=== PATIENT | male | born 1980 | race Caucasian/White ===

== ENCOUNTER 2019-12-27 11:37 | Outpatient (REF) | payer MEDICAID, SELFPAY ==
[2019-12-27 12:47] LABS: MANUAL DIFF FLAG NO
[2019-12-27 12:50] LABS: Basophils Percent Auto 0.9 % (0-2); Eosinophils Absolute Auto 0.2 X10*3/uL (0.0-0.4); Eosinophils Percent Auto 3.2 % (0-4); Hematocrit 39.2 % (42-52); Hemoglobin 13.9 g/dl (14.0-18.0); Imm Gran Abs Auto 0.01 X10*3/uL (0.00-0.03); Imm Gran Pct Auto 0.2 % (0.0-0.4); Lymphocytes Absolute Auto 1.5 X10*3/uL (1.2-4.9); Mean Corpuscular HGB Conc 35.5 g/dl (31.0-36.0); Mean Corpuscular Hemoglobin 31.4 pg (27.0-33.0); Mean Corpuscular Volume 88.7 fL (80-98); Mean Platelet Volume 9.5 fL (9.4-12.4); Monocytes Absolute Auto 0.4 X10*3/uL (0.1-1.2); Neutrophils Absolute Auto 2.6 X10*3/uL (2.0-8.3); Neutrophils Percent Auto 55.7 % (45-73); Platelet Count 331 X10*3/uL (160-400); Red Blood Count 4.42 X10*6/uL (4.60-5.80); Red Cell Distribution Width 11.7 % (11.0-16.0); White Blood Count 4.7 X10*3/uL (4.8-10.8)
[2019-12-27 14:28] LABS: Alanine Aminotransferase 21 U/L (0-40); Albumin Level 4.6 g/dL (3.5-5.0); Alkaline Phosphatase 84 U/L (39-117); Anion Gap 14 (12-20); Aspartate Amino Transferase 21 U/L (5-37); Bilirubin Total 0.6 mg/dL (0.0-1.0); Blood Urea Nitrogen 9 mg/dL (9-16); Carbon Dioxide 23 mmol/L (22-29); Chloride 104 mmol/L (96-108); Cholesterol 260 mg/dL; Estimated Glomerular Filt Rate > 60; Glucose Fasting 88 mg/dL (60-99); HDL Cholesterol 45 mg/dL; LDL Cholesterol Calculated 195 mg/dl; Potassium 4.3 mmol/l (3.3-5.1); Sodium 137 mmol/L (135-145); Total Protein 7.3 g/dL (6.5-8.0); Triglycerides 100 mg/dL
[2020-01-01 13:31] LABS: Testosterone, Free 109.1 pg/mL (35.0-155.0); Testosterone, Total 510 ng/dL (250-1100)
== END 2019-12-27 11:38 | disposition home or self-care (01) ==
LOC: HO.MANLDS 11:37
PROVIDERS: PCP Physician Assistant; Visit Provider Physician Assistant
DX: Z13.6 Encounter for screening for cardiovascular disorders (principal); F41.9 Anxiety disorder, unspecified
CPT/HCPCS: 36415; 80053; 80061; 84402; 84403; 85025

== ENCOUNTER 2020-04-03 09:52 | Outpatient (REF) | payer MEDICAID, SELFPAY ==
[2020-04-03 11:17] LABS: Glucose Urine UA NEG (NEG); Leukocyte Esterase Urine NEG (NEG); Nitrite Urine NEG (NEG); Specific Gravity - Urine 1.015 (1.005-1.025); Urine Blood NEG (NEG); Urine Ketones NEG (NEG); Urine Protein NEG (NEG-TRACE)
[2020-04-03 11:22] LABS: Appearance Urine CLEAR; Color Urine STRAW
== END 2020-04-03 09:53 | disposition home or self-care (01) ==
LOC: HO.MANLNP 09:52
PROVIDERS: PCP Internal Medicine; Visit Provider Internal Medicine
DX: R35.0 Frequency of micturition (principal)
CPT/HCPCS: 81003; 87086

== ENCOUNTER 2021-05-11 11:38 | Outpatient (REF) | payer MEDICAID, SELFPAY ==
[2021-05-11 13:26] LABS: MANUAL DIFF FLAG NO
[2021-05-11 13:30] LABS: Basophils Percent Auto 0.5 % (0-2); Eosinophils Absolute Auto 0.1 X10*3/uL (0.0-0.4); Eosinophils Percent Auto 2.2 % (0-4); Hematocrit 40.9 % (42.0-52.0); Imm Gran Abs Auto 0.01 X10*3/uL (0.00-0.03); Imm Gran Pct Auto 0.2 % (0.0-0.4); Lymphocytes Absolute Auto 1.4 X10*3/uL (1.2-4.9); Lymphocytes Percent Auto 23.9 % (20-40); Mean Corpuscular HGB Conc 34.2 g/dl (31.0-36.0); Mean Corpuscular Hemoglobin 30.3 pg (27.0-33.0); Mean Corpuscular Volume 88.5 fL (80.0-98.0); Monocytes Absolute Auto 0.4 X10*3/uL (0.1-1.2); Monocytes Percent Auto 7.3 % (2-11); Neutrophils Percent Auto 65.9 % (45-73); Platelet Count 305 X10*3/uL (160-400); Red Blood Count 4.62 X10*6/uL (4.60-5.80); Red Cell Distribution Width 11.9 % (11.0-16.0)
[2021-05-11 13:48] LABS: Alanine Aminotransferase 17 U/L (0-40); Albumin Level 4.4 g/dL (3.5-5.0); Alkaline Phosphatase 83 U/L (39-117); Anion Gap 12 (12-20); Aspartate Amino Transferase 20 U/L (5-37); Bilirubin Total 0.5 mg/dL (0.0-1.0); Blood Urea Nitrogen 12 mg/dL (9-16); Calcium 9.4 mg/dL (8.4-10.2); Carbon Dioxide 25 mmol/L (22-29); Chloride 106 mmol/L (96-108); Cholesterol 248 mg/dL; Estimated Glomerular Filt Rate > 60; Glucose Random 98 mg/dL (60-115); HDL Cholesterol 62 mg/dL; LDL Cholesterol Calculated 169 mg/dl; Potassium 4.1 mmol/L (3.3-5.1); Sodium 139 mmol/L (135-145); Total Protein 6.9 g/dL (6.5-8.0); Triglycerides 89 mg/dL
[2021-05-11 14:09] LABS: Prostate Specific Antigen 0.29 ng/mL (<0.05-4.0); Thyroid Stimulating Hormone 0.34 uIU/mL (0.32-4.0); Vitamin D 25-OH Total 22.2 ng/mL (>30)
== END 2021-05-11 11:39 | disposition home or self-care (01) ==
LOC: HO.MANLDS 11:38
PROVIDERS: PCP Internal Medicine; Visit Provider Internal Medicine
DX: Z00.00 Encounter for general adult medical examination without abnormal findings (principal); Z12.5 Encounter for screening for malignant neoplasm of prostate
CPT/HCPCS: 36415; 80053; 80061; 82306; 84153; 84443; 85025

== ENCOUNTER 2025-02-19 10:49 | Outpatient (REF) | payer BC, SELFPAY ==
--- NOTE | ~2025-02-19 | XR_ITS ---
EXAMINATION: XR THORACIC SPINE CLINICAL INFORMATION: strain of muscle COMPARISON: None available. TECHNIQUE: 3 views of the thoracic spine were obtained. FINDINGS: Vertebral body height and alignment is preserved. Disc spaces are relatively preserved with questionable minimal narrowing. XR/XR thoracic spine 2V IMPRESSION: Unremarkable thoracic spine. Electronically signed by: Ernesto Bender MD 02/21/2025 10:52 AM [facility]
--- OUTSIDE RECORDS SUMMARY | 2025-02-19 10:52 | XMS_ITS | Continuity of Care Document ---
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) MDM MODERATE MUST MEET 2 OUT OF 3 ELEMENTS: PROBLEMS, DATA OR RISK ELEMENT 1: PROBLEMS ADDRESSED 1 OR MORE CHRONIC ILLNESS WITH EXACERBATION OR 2 OR MORE STABLE CHRONIC ILLNESSES OR 1 UNDIAGNOSED NEW PROBLEM OR 1 ACUTE ILLNESS W/SYMPTOMS OR 1 ACUTE COMPLICATED INJURY ELEMENT 2: DATA MUST MEET 1 OF 3 CATEGORIES CATEGORY 1: REVIEW OF PRIOR EXTERNAL NOTES, REVIEW OF RESULTS, ORDERING OF EACH TEST, ASSESSMENT REQUIRING INDEPENDENT HISTORIAN OR CATEGORY 2: INDEPENDENT INTERPRETATION OF TESTS BY ANOTHER PHYSICIAN OR SPECIALIST OR CATEGORY 3: DISCUSSION OF MGT OR TEST INTERPRETATION W/EXTERNAL PHYSICIAN OR SPECIALIST ELEMENT 3: RISK RISK OF COMPLICATIONS AND/OR MORBIDITY OR MORTALITY OF PATIENT MANAGEMENT PROVIDER MUST THOROUGHLY DOCUMENT EACH ELEMENT THAT IS COVERED Not available 02/18/2025 14:49:25 Plan of Treatment Reminders Order Date Submit Date Provider Last Modified By Organization Details Last Modified Time Details Appointments None recorded. Lab None recorded. Referral None recorded. Procedures None recorded. Surgeries None recorded. Imaging XR, thoracic spine, 2 view 2024 025 [facility] (Imaging), [address] [place], [address], 15:17:32 Medication Orders None recorded. Patient TargetsNo targets recorded. Patient InstructionsNo instructions recorded. Reason for Referral None Reported. Problems Name Problem SNOMED Code Status Onset Date Resolution Date Notes Provider Name and Address Organization Details Recorded Time Anxiety 70452936 Active 2018 hCani becker [facility] Internal [facility] 9 16:20:54 Panic attack 509650009 [facility] 16:21:06 Restless legs syndrome 13055382 Active 2021 Joseph Rodríguez DO [address] [place] [address], [address], [facility] Internal [facility] 2 10:39:23 Acute sinusitis 83006321 Active 2021 DIPTI HONG [address] [place] [address], [address], [facility] 2 12:35:29 COVID-19 038812622 Active 2021 DIPTI HONG [address] [place] [address], [address], [facility] 2 16:09:16 Dysuria 97551528 Active 2021 Joseph Rodríguez DO [address] [place] [address], [address], [facility] 2 15:03:31 Cough 78871225 Active 2021 DIPTI HONG [address] [place] [address], [address], [facility] 2 12:27:28 Mood disorder 34861671 Active 2022 Joseph Rodríguez DO [address] [place] [address], [address], [facility] 3 22:27:49 Insomnia 553411296 Active 2022 Joseph Rodríguez DO [address] [place] [address], [address], [facility] 3 17:06:10 Laceratio n of right foot 735464267375 38958 Active 2023 DIPTI HONG [address] [place] [address], [address], [facility] 4 14:26:33 Muscle spasm of cervical muscle of neck 543351645023 Active 2024 Joseph RodríguezDO [address] [place] [address], [address], [facility] 5 11:26:32 Strain of thoracic region 23916154 Active 2024 Joseph RodríguezDO [address] [place] [address], [address], [facility] 5 11:26:45 Problem Notes None recorded. Procedures Surgical History Date Name Laterality Status Provider Name and Address Organization Details Recorded Time [facility]end[facility] completed [facility], [address], [address], [facility] 01/22/2019 16:14:19 Imaging Results None recorded. Procedure Notes None recorded. Medical Equipment None Reported. Allergies No known drug allergies Medications Name Sig Start Date Stop Date Status Note LastModified by Organization Details LastModified Time cyclobenzap rine 10 mg tablet TAKE 1 TABLET BY MOUTH EVERY DAY AT BEDTIME FOR 10 DAYS active Not Available Not Available No t Available amoxicillin 500 mg capsule TK 1 C PO Q 6 H UNTIL FINISHED 06/27 completed Not Available Not Available Not Available doxycycline hyclate 100 mg capsule TAKE 1 CAPSULE BY MOUTH TWICE DAILY 04/03 completed Not Available Not Available Not Available clindamycin HCl 300 mg capsule TK ONE C PO Q 12 H UNTIL FINISHED 06/27 completed Not Available Not Available Not Available azithromyci n 250 mg tablet TAKE 2 TABLETS (500 MG) BY ORAL ROUTE ONCE DAILY FOR 1 DAY THEN 1 TABLET (250 MG) BY ORAL ROUTE ONCE DAILY FOR 4 DAYS 11/02 completed Not Available Not Available Not Available ibuprofen 800 mg tablet TK 1 T PO Q 8 H PRF PAIN 05/04 completed Not Available Not Available Not Available sertraline 100 mg tablet TAKE 1 TABLET BY MOUTH EVERY DAY IN THE MORNING active Not Available Not Available No t Available venlafaxine ER 150 mg capsule,ext ended release 24 hr 11/02 completed Not Available Not Available Not Available tramadol 50 mg tablet TK 1 T PO Q 6 H 04/03 completed Not Available Not Available Not Available acetaminoph en 500 mg tablet TK 1 T PO Q 6 H PRF PAIN 04/17 completed Not Available Not Available Not Available amoxicillin 500 mg tablet TAKE 1 TABLET BY MOUTH EVERY 8 HOURS 04/03 completed Not Available Not Available Not Available ondansetron 8 mg disintegrat ing tablet DISSOLVE 1 TABLET ON THE TONGUE TWICE DAILY FOR 14 DAYS 07/03 completed Not Available Not Available Not Available lorazepam 0.5 mg tablet TAKE 1 TABLET BY MOUTH TWICE A DAY NEEDED FOR ANXIETY active Not Available Not Available No t Available tamsulosin 0.4 mg capsule TAKE 1 CAPSULE BY MOUTH EVERY DAY 02/18 completed Not Available Not Available Not Available bupropion HCl 75 mg tablet Take 1 tablet every day by oral route for 30 days. 06/01 completed Not Available Not Available Not Available gabapentin 300 mg capsule TAKE 1 CAPSULE BY MOUTH THREE TIMES DAILY 11/02 completed Not Available Not Available Not Available diclofenac sodium 75 mg tablet,emerson yed release TAKE 1 TABLET BY MOUTH TWICE A DAY FOR 10 DAYS active Not Available Not Available No t Available hydroxyzine HCl 25 mg tablet TK 1 TO 2 TS PO HS PRN 04/17 completed Not Available Not Available Not Available codeine 10 mg-guaifene sin 100 mg/5 mL oral liquid TAKE 10ML BY MOUTH EVERY 4 HOURS NEEDED FOR 7 DAYS 07/03 completed Not Available Not Available Not Available diclofenac sodium 50 mg tablet,emerson yed release Take 1 tablet twice a day by oral route with meals for 30 days. 12/26 completed Not Available Not Available Not Available ibuprofen 600 mg tablet TAKE 1 TABLET BY MOUTH EVERY 8 HOURS NEEDED FOR PAIN 04/17 completed Not Available Not Available Not Available zolpidem 10 mg tablet TAKE 1 TABLET BY MOUTH EVERY DAY NEEDED active Not Available Not Available No t Available methylpredn isolone 4 mg tablets in a dose pack FOLLOW PACKAGE DIRECTION S 06/28 completed Not Available Not Available Not Available sertraline 50 mg tablet Take 1 tablet every day by oral route. 09/14 completed Not Available Not Available Not Available sodium fluoride 1.1 % dental gel AFTER BRUSHING WITH TOOTHPAST E RINSE USUAL APPLY GEL TO TEETH WITH TOOTHBRUS H FOR 1 MINUTE SPIT OUT GEL DO NOT EAT OR DRINK FOR 30 MINUTES 04/17 completed Not Available Not Available Not Available oxycodone 5 mg tablet TK 1 T PO Q 6 H PRF PAIN 06/27 completed Not Available Not Available Not Available ProAir HFA 90 mcg/actuati on aerosol inhaler Inhale 2 puffs every 4 hours by inhalatio n route. 12/26 completed Not Available Not Available Not Available aripiprazol e 2 mg tablet Take 1 tablet every day by oral route in the evening for 30 days. 07/09 completed Not Available Not Available Not Available Trintellix 5 mg tablet Take by oral route for 30 days. 07/17 completed Not Available Not Available Not Available molnupiravi r 200 mg capsule (EUA) TAKE 4 CAPSULES BY MOUTH EVERY 12 HOURS FOR 5 DAYS 11/02 completed Not Available Not Available Not Available Vitals Date Recorded Body height Body mass index (BMI) Body weight Heart rate Oxygen saturation Systolic And Diastolic Provider Name and Address Organization Details Last Updated DateTime 5 176.53 cm 20.5 kg/m2 69433.8 1 g 88 /min 97 % 148/90 mm[Hg] Kimberlyn De La Vega [facility] Internal [facility] 5 14:39:20 Social History Question Answer Notes LastModified by Organizat ion Details LastModified Time Tobacco Smoking Status Never Smoker June [address], [address] 01/22/2019 16:13:31 What Was The Date Of Your Most Recent Tobacco Screening? 02/18/2025 [email or web address] Information not available 02/18/2025 How Much Tobacco Do You Smoke? No Information not available 01/22/2019 How Many Years Have You Smoked Tobacco? 6 Information not available 01/22/2019 Sex: Unknown Functional Status Question Answer Note LastModified by Organizat ion Details LastModified Time Do you or have you ever used any other forms of tobacco or nicotine? No Information not available 07/03/2022 Do you or have you ever used smokeless tobacco? Former smokeless tobacco user Information not available 01/22/2019 Do you or have you ever used e-cigarettes or vape? Current user of electronic cigarettes Information not available 05/04/2021 Mental Status None recorded. Family History Relationship Description Onset Age of this Age Resolved Age Notes LastModified by Organization Details LastModified Time Father Coronary arterioscler osis [email or web address] Not available 2018 16:21:48 Father Hyperlipidem ia [email or web address] Not available 13:44:40 Maternal Grandmother Malignant neoplasm of breast [email or web address] Not available 13:44:40 Maternal Grandmother Cerebrovascu lar accident Not available 16:12:58 Maternal Grandmother Myocardial infarction Not available 01/02 16:13:04 Maternal Uncle Malignant neoplasm of liver etoh [email or web address] Not available 13:44:40 Medical History No medical history recorded. Immunizations Vaccine Type Date Status Note Provider Nam e and Address Organization Details Recorded Time COVID-19 vaccine, vector-nr, rS-ChAdOx1, PF, 0.5 mL 2 completed Patricia becker [facility] 05/04/2021 15:10:14 Td (adult) 5 monica becker [facility] 05/04/2021 15:10:24 pneumococcal polysaccharide PPV23 8 monica becker [facility] 05/04/2021 15:10:36 Past Encounters Encounter ID Performer Location Encounter Start Date Encounter Closed Date Diagnosis/Indication Diagnosis SNOMED-CT Code Diagnosis ICD10 Code Diagnosis IMO Codes Diagnosis Note [id number] DIPTI HONG [facility] [address] [address] 02/07/2025 10:56:48 02/07/2025 11:33:07 Anxiety 82673272 F41.1 we will try aripiprazo le Mood disorder 14729057 F 40 stable Muscle spa sm of cervical muscle of neck 3090237367 04 M62.163 6522455 Strain of thoracic region 48252791 S29.012A [id number] DO Torres [facility] [address] [address] 02/18/2025 14:32:26 02/18/2025 15:17:32 Strain of thoracic region 26217719 S29.012A [id number] Health Concerns Section Related Observation LastModified by Organization Detai ls LastModified Time None Recorded Concern Status LastModified by Organization Details LastModified Time None Recorded Payers Encounter Date Sequence Insurance Name Policy Number Policy Pepe Covered Member ID Pepe Member ID Guarantor Name 02/18/2025 1 [facility] [employer] [id number] Cameron Alfaro [id number] Cameron Alfaro Notes Date Note Type Note Provider Name a nd Address Organization Details Recorded Time 02/18/2025 text/html ROS as noted in the HPI haere for rechkrelates that he is having a lot of discomfort in mid trapezius regionrelates went back to workand having gradual return of pain when he was lifting discomfort Joseph Rodríguez DO [address] [facility] [address], [place], [address], [facility] 02/18/2025 14:51:47
--- OUTSIDE RECORDS SUMMARY | 2025-02-19 10:52 | XMS_ITS | Encounter Summary ---
Author Organization [facility] Address [address] [place] [address] Phone Care Team Providers Care Physical Ther Name Role Phone Yong Tejada MD Primary Care Provider Markus hunter Encounter Details Date Type Department Care Team (Late st Contact Info) Description 11/26/2010 Documentation [facility] Family Medicine [address] [place], [place] [phone] Family Medicine, Physician [address] [place], [place] [phone] Social History Tobacco Use Types Packs/Day Years Used Date Smoking Tobacco: Never Assessed Sex and Gender Information Value Date Recorded Sex Assigned at Not on file Legal Sex Male 4:33 PM EDT Gender Identity Not on file Sexual Orientation Not on file documented as of this encounter Plan of Treatment Not on file documented as of this encounter Visit Diagnoses Not on filedocumented in this encounter Care Teams Physical Ther Relationship Specialty Start Date End Date Yong Tejada MD PCP - General 10/11/16 06/10/22 documented as of this encounter
--- OUTSIDE RECORDS SUMMARY | 2025-02-19 10:52 | XMS_ITS | Clinical Summary ---
Author Organization [facility] Address [address] [place] [address] Phone Care Team Providers Care Head Of Mathematics Name Role Phone Unavailable Primary Care Provider Unavailabl e Social History Tobacco Use Types Packs/Day Years Used Date Smoking Tobacco: Never Assessed Sex and Gender Information Value Date Recorded Sex Assigned at Not on file Legal Sex Male 4:33 PM EDT Gender Identity Not on file Sexual Orientation Not on file Plan of Treatment Health Maintenance Due Date Last Done Comments MMR Vaccines (1 of 1 - Stand jon series) 1982 Varicella Vaccines (1 of 2 - 13+ 2-dose series) 1994 DTaP,Tdap,and Td Vaccines (1 - Tdap) 09/21/1999 Hepatitis B Vaccines (1 of 3 - 19+ 3-dose series) 2000 HPV Vaccines (1 - 3-dose SCD M series) 2008 Influenza Vaccines (#1) 2024 COVID-19 Vaccine (2024-2 6 season) 2024 HIB Vaccines Aged Out No longer eligi ble based on patient's age to complete this topic Hepatitis A Vaccines Aged Out No long er eligible based on patient's age to complete this topic IPV Vaccines Aged Out No longer eligi ble based on patient's age to complete this topic Men B Vaccine Aged Out No longer elig ible based on patient's age to complete this topic Meningococcal Vaccine Aged Out No ruben justina eligible based on patient's age to complete this topic Pneumococcal Vaccine Aged Out No long er eligible based on patient's age to complete this topic
--- OUTSIDE RECORDS SUMMARY | 2025-02-19 10:52 | XMS_ITS | Encounter Summary ---
Author Organization [facility] Address [address] [place] [address] Phone Care Team Providers Care Blade Grader Operator Name Role Phone Yong Tejada MD Primary Care Provider Markus hunter Encounter Details Date Type Department Care Team (Late st Contact Info) Description 11/26/2010 Documentation [facility] [place] [address] [place], [place] [phone] Family Medicine, Physician [address] [place], [place] [address] Social History Tobacco Use Types Packs/Day Years [...] on filedocumented in this encounter Care Teams Blade Grader Operator Relationship Specialty Start Date End Date Yong Tejada MD PCP - General 10/11/16 06/10/22 documented as of this encounter
--- OUTSIDE RECORDS SUMMARY | 2025-02-19 10:52 | XMS_ITS | Clinical Summary ---
Author Organization [facility] Address [address] [place] [address] Care Team Providers Care Thread Spooler Name Role Phone Unavailable Primary Care Provider Unavailabl e Social History Tobacco Use Types Packs/Day Years Used Date Smoking Tobacco: Never Assessed Sex and Gender Information Value Date Recorded Sex Assigned at Not on file Legal Sex Male 8:51 PM EST Gender Identity Not on file Sexual Orientation Not on file Plan of Treatment Health Maintenance Due Date Last Done Comments DTaP,Tdap,and Td Vaccines (1 - Tdap) 2000 Hepatitis B Vaccines (1 of 3 - 19+ 3-dose series) 2000 HPV Vaccines (1 - 3-dose SCD M series) 2008 Depression Screening 03/03/2024 COVID-19 Vaccine (1 - 2024-2 6 season) 2024 Influenza Vaccine (#1) 2024 RSV Immunization Adult Patie nts (1 - 1-dose 75+ series) 2056 HIB Vaccines Aged Out No longer eligi ble based on patient's age to complete this topic Hepatitis A Vaccines Aged Out No long er eligible based on patient's age to complete this topic IPV Vaccines Aged Out No longer eligi ble based on patient's age to complete this topic MMR Vaccines Aged Out No longer eligi ble based on patient's age to complete this topic Meningococcal ACWY Vaccine Aged Out N o longer eligible based on patient's age to complete this topic Meningococcal B Vaccine Aged Out No l onger eligible based on patient's age to complete this topic Pneumococcal Vaccine: Pediat rics (0 to 5 Years) and At-Risk Patients (6 to 49 Years) Aged Out No longer eligible b ased on patient's age to complete this topic RSV Immunization Patients Un adrien 20 months Aged Out No longer eligible b ased on patient's age to complete this topic Varicella Vaccines Aged Out No longer eligible based on patient's age to complete this topic
--- OUTSIDE RECORDS SUMMARY | 2025-02-19 10:52 | XMS_ITS | Continuity of Care Document ---
Author Organization [facility], [facility] Address [address] [facility] [place] [address] [place] [address] Assessment Encounter Date Assessment Date Assessment LastModified by Organization Details LastModified Time 02/07/2025 02/07/2025 [id number] [place] [id number] (ALMOND GRINDER) MDM MODERATE MUST MEET 2 OUT OF [...] EACH ELEMENT THAT IS COVERED Not available 02/07/2025 11:25:54 Plan of Treatment Reminders Order Date Submit Date Provider Last Modified By Organization Details Last Modified Time Details Appointments None recorded. Lab None recorded. Referral physical therapist referral 2024 025 [email or web address] [address] [facility], [address] [place] [address], [id number], 08:13:57 Procedures None recorded. Surgeries None recorded. Imaging None recorded. Medication Orders cyclobenzap rine [address] [id number], [address] [facility], [place], [address], 12/08/202 5 11:29:36 diclofenac sodium 75 mg tablet,emerson yed release [address] [facility][id number], [address] [facility], [place], [address], 5 11:29:35 Patient TargetsNo targets recorded. Patient Instructions Encounter Date Encounter Id Patient Instructions Last Modified By Organization Details Last Modified Time 02/07/2025 [id number] learning about mood disorders Not available 02/07/2025 11:29:32 Reason for Referral Physical Therapist Referral for Muscle spasm of cervical muscle of neck trapezius and rhomboid strain /spasm Referring Physician: Joseph Rodríguez, Internal Medicine, Encounter Date: 02/07/2025 Problems Name Problem SNOMED Code Status Onset Date Resolution Date Notes Provider Name and Address Organization Details Recorded Time Anxiety 54230869 Active 2018 Chani becker [facility] 9 16:20:54 Panic attack 874939324 Active 2018 Chani becker [facility] 9 16:21:06 Restless legs syndrome 42257857 Active 2021 Joseph Rodríguez DO [address] [place] [address], [phone], [facility] 2 10:39:23 Acute sinusitis 74231953 Active 2021 DIPTI HONG [address] [place] [address], [phone], [facility] 2 12:35:29 COVID-19 878054693 Active 2021 DIPTI HONG [address] [place] [address], [address], [facility] 2 16:09:16 Dysuria 08495233 Active 2021 Joseph Rodríguez DO [address] [place] [address], [address], [facility] 2 15:03:31 Cough 90675295 Active 2021 DIPTI HONG [address] [place] [address], [phone], [facility] 2 12:27:28 Mood disorder 93231265 Active 2022 Joseph Rodríguez, [address] [place] [address], [address], [facility] 3 22:27:49 Insomnia 732248064 Active 2022 Joseph Rodríguez, DO [address] [place] [address], [address], [facility] 3 17:06:10 Laceratio n of right foot 272852046333 83755 Active 2023 DIPTI HONG [address] [place] [address], [address], [facility] 4 14:26:33 Muscle spasm of cervical muscle of neck 780426984358 Active 2024 Joseph Rodríguez DO [address] [place] [address], [address], [facility] 5 11:26:32 Strain of thoracic region 93119250 Active 2024 Joseph Rodríguez, DO [address] [place] [address], [address], [facility] 5 11:26:45 Problem Notes None recorded. Procedures Surgical History Date Name Laterality Status Provider Name and Address Organization Details Recorded Time Appendectomy completed June [facility], [address], [address], [facility] 01/22/2019 16:14:19 Imaging [...] Not Available Vitals Date Recorded Body height Heart rate Oxygen saturation Systolic And Diastolic Provider Name and Address Organization Details Last Updated DateTime 02/07/2025 176.53 cm 64 /min 98 % 122/70 mm[Hg] Tr[facility] 02/07/2025 11:23:24 Social History Question Answer Notes LastModified by [employer] Details LastModified Time Tobacco Smoking Status Never Smoker June CARLITOS Singh [address] [facility], [place], [address], [facility] 01/22/2019 16:13:31 What Was The Date Of Your Most Recent Tobacco Screening? 02/18/2025 [email or web address] Information not available 02/18/2025 How Much Tobacco Do You Smoke? No Information not available 01/22/2019 How Many Years Have You Smoked Tobacco? 6 Information not available 01/22/2019 Sex: Unknown Functional Status Question Answer Note LastModified by [employer] Details LastModified Time Do you or have you ever used any other forms of tobacco or nicotine? No [email or web address] Information not available 07/03/2022 Do you or [...] Not available 2018 16:21:48 Father Hyperlipidem ia [email or web address] Not available 13:44:40 Maternal Grandmother Malignant neoplasm of breast [email or web address] Not available 13:44:40 Maternal Grandmother Cerebrovascu lar accident Not available 16:12:58 Maternal Grandmother Myocardial infarction Not available 01/02 16:13:04 Maternal Uncle Malignant neoplasm of liver etoh [email or web address] Not available 13:44:40 Medical History No medical history recorded. Immunizations Vaccine Type Date Status Note Provider Nam e and Address Organization Details Recorded Time COVID-19 vaccine, vector-nr, rS-ChAdOx1, PF, 0.5 mL 2 completed Patricia becker [facility] 05/04/2021 15:10:14 Td (adult) 5 completed Patricia becker [facility] 05/04/2021 15:10:24 pneumococcal polysaccharide PPV23 8 completed Patricia becker [facility] 05/04/2021 15:10:36 Past Encounters Encounter ID Performer Location Encounter Start Date Encounter Closed Date Diagnosis/Indication Diagnosis SNOMED-CT Code Diagnosis ICD10 Code Diagnosis IMO Codes Diagnosis Note [id number] DIPTI HONG [facility] [address] [facility] [address] 02/07/2025 10:56:48 02/07/2025 11:33:07 Anxiety 23997865 F41.1 we will try aripiprazo le Mood disorder 55513918 F 39 stable Muscle spa sm of cervical muscle of neck 1300433076 04 M62.391 9995456 Strain of thoracic region 14347510 S29.012A 36943958 Health Concerns Section Related Observation LastModified by Organization Detai ls LastModified Time None Recorded Concern Status LastModified by Organization Details LastModified Time None Recorded Payers Encounter Date Sequence Insurance Name Policy Number Policy Pepe Covered Member ID Pepe Member ID Guarantor Name 02/07/2025 1 [employer] [id number] Cameron Alfaro [id number] Cameron Alfaro Notes Date Note Type Note Provider Name a nd Address Organization Details Recorded Time 02/07/2025 text/html ROS as noted in the HPI here for eval of injury when picking up a heavy object at workpain located acros mid back at trapezius up to neck and between shoulder blad on left palp pain to this area is dramatic Joseph Rodríguez, DO [address] [facility], [place], [address], [facility] 02/07/2025 11:30:34
--- OUTSIDE RECORDS SUMMARY | 2025-02-19 10:52 | XMS_ITS | Encounter Summary ---
Author Organization [facility] Address [address] [place] [id number] Phone Care Team Providers Care Main Entree Cook And Cashier Name Role Phone Yong Tejada MD Primary Care Provider Markus hunter Encounter Details Date Type Department Care Team (Late st Contact Info) Description 11/26/2010 Documentation [facility] Family Medicine [address] [place], [place] [phone] Family Medicine, Physician [address] [place], [place] [id number] Social History Tobacco Use Types Packs/Day Years [...] on filedocumented in this encounter Care Teams Main Entree Cook And Cashier Relationship Specialty Start Date End Date Yong Tejada MD PCP - General 10/11/16 06/10/22 documented as of this encounter
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
--- OUTSIDE RECORDS SUMMARY | 2025-02-19 10:52 | XMS_ITS | Clinical Summary ---
Author Organization [facility] Address [address] [place] [address] Phone Care Team Providers Care Qa Intern Name Role Phone Unavailable Primary Care Provider Unavailabl e Social History Tobacco Use Types Packs/Day Years Used Date Smoking Tobacco: Never Assessed Education Answer Date Recorded Are you interested in more education? Not on franca e 08/27/2024 Are you concerned about learning? Not on file 08/27/2024 No 08/27/2024 No 08/27/2024 Digital Access Answer Date Recorded No 08/27/2024 No 08/27/2024 Reliable internet access at home? Not on file 08/27/2024 Device with a working camera? Not on file Sex and Gender Information Value Date Recorded Sex Assigned at Not on file Legal Sex Male 8:17 AM EDT Gender Identity Not on file Sexual Orientation Not on file Plan of Treatment Health Maintenance Due Date Last Done Comments LIPID PANEL 1981 DEPRESSION SCREENING 1993 SMOKING Hx and SMOKELESS TOBACCO SCREENING 1994 HEPATITIS C SCREENING 09/21/1999 HIV ONE-TIME SCREENING (18-6 5 YEARS) 09/21/1999 Adult Td,Tdap Booster 08/25/2024 08/25/2014 INFLUENZA VACCINE (#1) 2024 0, 02/11/2018 COVID-19 VACCINE (2024-2 6 season) 2024 03/05/2021 PNEUMOCOCCAL VACCINES (0-49 years) Aged Out 06/03/2017 No longer eligible b ased on patient's age to complete this topic HEPATITIS A VACCINES Aged Out No long er eligible based on patient's age to complete this topic HIB VACCINES Aged Out No longer eligi ble based on patient's age to complete this topic MENINGOCOCCAL VACCINES (ACWY) Aged Out No longer eligible based on patient's age to complete this topic MENINGOCOCCAL VACCINES (B) Aged Out N o longer eligible based on patient's age to complete this topic Medical Devices Not on file Additional Source Comments The information contained in this document represents components of the legal health record. It is not the complete legal health record.[facility]
--- OUTSIDE RECORDS SUMMARY | 2025-02-19 10:52 | XMS_ITS | Encounter Summary ---
Author Organization [facility] Address [address] [place] [address] Phone Care Team Providers Care Cytology Manager Name Role Phone Yong Tejada MD Primary Care Provider Markus hunter Encounter Details Date Type Department Care Team (Late st Contact Info) Description 11/26/2010 Documentation [facility] Family Medicine [address] [place], [place] [id number] Family Medicine, Physician [address] [place], [place] [address] Social History Tobacco Use Types Packs/Day Years [...] on filedocumented in this encounter Care Teams Cytology Manager Relationship Specialty Start Date End Date Yong Tejada MD PCP - General 10/11/16 06/10/22 documented as of this encounter
== END 2025-02-19 10:50 | disposition home or self-care (01) ==
LOC: HO.XRAY 10:49
PROVIDERS: PCP Internal Medicine; Visit Provider Internal Medicine
DX: S29.012A Strain of muscle and tendon of back wall of thorax, initial encounter (principal); X58.XXXA Exposure to other specified factors, initial encounter
CPT/HCPCS: 72070

== ENCOUNTER → 2025-02-19 11:04 | Outpatient (BNV) | payer BC, SELFPAY | PROVIDERS: PCP Internal Medicine; Visit Provider Radiology Diagnostic Radiology | DX: S29.012A Strain of muscle and tendon of back wall of thorax, initial encounter (principal) | CPT/HCPCS: 72070 ==